=== PATIENT | male | born 1965 | race Caucasian/White ===

== ENCOUNTER → 2018-10-20 | Outpatient (REF) ==
--- NOTE | 2018-10-21 01:38 | REP ---
Clinical: Pain Technique: AP, lateral, bilateral oblique and sunrise views right knee . Findings: The osseous structures and joint spaces are intact and normal. There is no evidence for acute fracture or dislocation. No joint effusion is appreciated. Surrounding soft tissues are unremarkable. No subcutaneous emphysema or radiodense foreign body. Impression: Normal examination. No acute fracture or dislocation. Electronically Signed by Lee Fisher MD 10/21/2018 01:28 A
--- NOTE | 2018-10-21 03:08 | REP ---
Clinical: Pain and disability. Technique: AP, lateral, swimmers, and open-mouth views of the cervical spine. Findings: Straightening of normal lordosis with moderate to advanced degenerative disc osteophyte complex predominantly involving C5-6 as well as C4-5 and C6-7. Findings include endplate sclerosis, osteophytosis and disc space narrowing. Open mouth view demonstrates normal C1-C2 articulation and odontoid process. No obvious acute fracture / compression injury or subluxation. Impression: Advanced degenerative changes involving C4-5 through C6-7. Electronically Signed by Lee Fisher MD 10/21/2018 03:00 A
== END ==
LOC: M SMT 13:27
PROVIDERS: ATTEND Internal Medicine
DX: Z00.00 Encounter for general adult medical examination without abnormal findings (principal)